=== PATIENT | male | born 1955 | race African-American/Black ===

== ENCOUNTER 2017-12-06 17:47 | Observation (INO) | payer OTHER ==
[2017-12-06] MEDS ORDERED: levETIRAcetam 500 MG/5 ML INJECTION VIAL IVPB ONE (17:56)
--- NOTE | 2017-12-06 18:02 | PDOC ---
History of Present Illness - History of Present Illness Initial Comments: 12/06/17 17:59 Pt is a 62 y/o M with PMH seizure disorder, HTN, HLD, DM who was BIBEMS for witnessed seizure. Pt accompanied by 3 sisters who state that they heard a thump and went upstairs to find him seizing and called the ambulance. Family notes that pt has been uncompliant with medications, although pt is adamant that he takes his medications every day. Pt had his first seizure in Sep 2016 and has had several seizures since then, for which they normally go to [facility]. In ED, pt is still somewhat drowsy and slow to answer questions, but is AAOx3. Pt does not remember what happened. <Christiano Hamlin - Last Filed: 12/06/17 19:11> <Jenny Johns - Last Filed: 12/06/17 20:56> - General Chief Complaint: Seizure Stated Complaint: SEIZURE Time Seen by Provider: 12/06/17 17:58 Past History - Past Medical History Anemia: No Asthma: No Cancer: No Cardiac Disorders: No CVA: No COPD: No CHF: No Dementia: No Diabetes: Yes (NIDDM) GI Disorders: No Disorders: No HTN: Yes Hypercholesterolemia: No Liver Disease: No Seizures: No Thyroid Disease: No - Surgical History Orthopedic Surgery: Yes - Suicide/Smoking/Psychosocial Hx Smoking History: Never smoked Have you smoked in the past 12 months: No Hx Alcohol Use: No Drug/Substance Use Hx: No Substance Use Type: None Hx Substance Use Treatment: No <Christiano Hamlin - Last Filed: 12/06/17 19:11> <Jenny Johns - Last Filed: 12/06/17 20:56> - Past Medical History Allergies/Adverse Reactions: Allergies Allergy/AdvReac Type Severity Reaction Status Date / Time No Known Drug Allergies Allergy Verified 12/06/17 17:53 Home Medications: Ambulatory Orders Amlodipine Besylate [Norvasc -] 10 mg PO DAILY 12/06/17 Atorvastatin Calcium 80 mg PO DAILY 12/06/17 Hydrochlorothiazide 25 mg PO DAILY 12/06/17 Levetiracetam 750 mg PO BID 12/06/17 Metformin HCl 500 mg PO BID 12/06/17 Review of Systems - Review of Systems Able to Perform ROS?: Yes (limited. Post-ictal) Is the patient limited Greenlandic proficient: No Constitutional: Yes: Symptoms Reported. No: Chills, Diaphoresis, Fever HEENTM: Yes: Symptoms Reported. No: Blurred Vision Respiratory: Yes: Symptoms reported. No: Cough Cardiac (ROS): Yes: Symptoms Reported. No: Chest Pain, Chest Tightness ABD/GI: Yes: Symptoms Reported. No: Abdominal Distended, Constipated, Diarrhea , Difficulty Swallowing, Nausea, Poor Appetite, Vomiting : Yes: Symptoms Reported. No: Burning, Dysuria, Discharge, Hematuria, Pain Neurological: Yes: Symptoms reported, Headache (for a few minutes preceding his seizure) <Christiano Hamlin - Last Filed: 12/06/17 19:11> *Physical Exam - Physical Exam General Appearance: Yes: Nourished, Appropriately Dressed, Obese. No: Apparent Distress HEENT: positive: EOMI (pt tracks but slowly and requires prompting. Able to look in all directions without nystagmus), Normal Voice. negative: DORA (fixed pupils s/p cataract), Normal ENT Inspection (pharynx poorly visualized. Tongue without lesion. Moist mucous membranes) Neck: positive: Supple. negative: Tender Respiratory/Chest: positive: Chest Tender, Normal Breath Sounds Cardiovascular: positive: Regular Rhythm, Regular Rate Gastrointestinal/Abdominal: positive: Normal Bowel Sounds, Soft. negative: Tender Neurologic: positive: Fully Oriented. negative: Normal Mood/Affect (Pt still post-ictal and drowsy. Slow to obey commands) <Christiano Hamlin - Last Filed: 12/06/17 19:11> - Vital Signs Last Vital Signs Temp Pulse Resp BP Pulse Ox 97.0 F L 90 20 95/84 97 12/06/17 17:53 12/06/17 18:01 12/06/17 17:53 12/06/17 17:53 12/06/17 18:01 <Jenny Johns - Last Filed: 12/06/17 20:56> ED Treatment Course - LABORATORY CBC & Chemistry Diagram: 12/06/17 18:46 12/06/17 18:46 <Christiano Hamlin - Last Filed: 12/06/17 19:11> - LABORATORY CBC & Chemistry Diagram: 12/06/17 18:46 12/06/17 18:46 - ADDITIONAL ORDERS Additional order review: Laboratory Results 12/06/17 12/06/17 12/06/17 18:46 18:46 18:46 PT with INR 11.70 INR 1.04 Sodium 139 Potassium 3.5 Chloride 104 Carbon Dioxide 23 Anion Gap 12 BUN 16 Creatinine 1.3 D Creat Clearance w eGFR 55.94 Random Glucose 150 H D Calcium 8.6 Total Bilirubin 0.5 D AST 15 D ALT 30 D Alkaline Phosphatase 166 H D Creatine Kinase 195 Creatine Kinase Index 1.0 CK-MB (CK-2) 1.951 Troponin I < 0.02 Total Protein 8.3 H Albumin 3.9 Blood Type O POSITIVE Antibody Screen Negative 12/06/17 18:46 RBC 5.26 MCV 88.7 MCHC 31.8 L RDW 14.0 MPV 10.4 Neutrophils % 87.1 H D Lymphocytes % 8.8 D Monocytes % 3.5 L Eosinophils % 0.2 D Basophils % 0.4 - RADIOLOGY Radiology Studies Ordered: Category Date Time Status HEAD CT WITHOUT CONTRAST [CT] Stat CT Scan 12/06/17 17:54 Ordered CHEST X-RAY PORTABLE* [RAD] Stat Radiology 12/06/17 17:54 Taken - Medications Given in the ED: ED Medications Discontinued Medications Generic Name Dose Route Start Last Admin Trade Name Freq PRN Reason Stop Dose Admin Levetiracetam 1,000 mg/ Sodium 110 mls @ 420 mls/hr 12/06/17 18:15 12/06/17 20:37 Chloride IVPB 12/06/17 18:30 420 mls/hr ONCE ONE Administration <Jenny Johns - Last Filed: 12/06/17 20:56> Medical Decision Making - Medical Decision Making 12/06/17 18:09 Pt is a 62 y/o M with PMH epilepsy who is reportedly noncompliant with medication who was BIBEMS for witnessed seizure. -Head CT -keppra 1gm -cbc -cmp -ua -trop -pt/inr -ekg -cxr Pt sees Dr. Garcia (neurology) 12/06/17 19:11 Pt stable, afebrile, in NAD. Pt signed out to night team. <Christiano Hamlin - Last Filed: 12/06/17 19:11> *DC/Admit/Observation/Transfer <Christiano Hamlin - Last Filed: 12/06/17 19:11> - Discharge Dispostion Admit: Yes <Jenny Johns - Last Filed: 12/06/17 20:56> Diagnosis at time of Disposition: Seizure - Referrals Referrals: Jerilyn Grant MD [Primary Care Provider] - - Patient Instructions - Post Discharge Activity
[2017-12-06] MEDS ORDERED: LEVETIRACETAM IVPB ONE ×2 (18:15)
[2017-12-06] MEDS ORDERED: SODIUM CHLORIDE IVPB ONE ×2 (18:15)
[2017-12-06 18:54] LABS: BASO % 0.4 % (0-2.0); EOS % 0.2 % (0-4.5); HEMATOCRIT 46.7 % (35.4-49); HEMOGLOBIN 14.9 GM/dL (11.7-16.9); LYMPH % 8.8 % (8-40); MCH 28.2 pg (25.7-33.7); MCHC 31.8 g/dl (32.0-35.9); MEAN CELL VOLUME 88.7 fl (80-96); MEAN PLT VOLUME 10.4 fl (7.5-11.1); MONO % 3.5 % (3.8-10.2); NEUT % 87.1 % (42.8-82.8); PLATELET COUNT 203 K/MM3 (134-434); RBC 5.26 M/mm3 (4.00-5.60); WHITE BLOOD COUNT 13.2 K/mm3 (4.0-10.0)
[2017-12-06 19:06] LABS: INR 1.04 (0.82-1.09); PROTHROMBIN TIME (PATIENT) 11.7 SEC (9.98-11.88)
[2017-12-06 19:23] LABS: ALBUMIN 3.9 g/dl (3.4-5.0); ANION GAP 12 (8-16); BILIRUBIN,TOTAL 0.5 mg/dL (0.2-1.0); BLOOD UREA NITROGEN 16 mg/dL (7-18); CALCIUM 8.6 mg/dL (8.5-10.1); CHLORIDE 104 mmol/L (98-107); CO2 23 mmol/L (21-32); CREATININE 1.3 mg/dL (0.7-1.3); GLUCOSE,RANDOM 150 mg/dL (74-106); POTASSIUM 3.5 mmol/L (3.5-5.1); SGOT/AST 15 U/L (15-37); SGPT/ALT 30 U/L (12-78); SODIUM 139 mmol/L (136-145); TOT PROT 8.3 g/dl (6.4-8.2)
[2017-12-06 19:25] LABS: ALK PHOS 166 U/L (45-117)
--- NOTE | 2017-12-06 20:48 | HP ---
CHIEF COMPLAINT:seizure PCP: HISTORY OF PRESENT ILLNESS: Pt is a 62 y/o M with PMH seizure disorder, HTN, HLD, DM who was BIBEMS for witnessed seizure. Pt accompanied by 3 sisters who state that they heard a thump and went upstairs to find him seizing and called the ambulance. Family notes that pt has been uncompliant with medications, although pt is adamant that he takes his medications every day. Pt had his first seizure in Sep 2016 and has had several seizures since then, for which they normally go to [facility]. In ED, pt is still somewhat drowsy and slow to answer questions, but is AAOx3. Pt does not remember what happened. ROS: Denies fever, chills,N/V/D/C. He denies any chest pain SoB, palpitation. abdominal pain or urinary symptoms. ER course was notable for: (1)CT denies by patient (2)CBC : wbc 13.2 (3)CMP : Glu 150 (4) Levetiracetam 750 IV push Recent Travel:denies PAST MEDICAL HISTORY: Seizure, HTN,HLD, DM . PAST SURGICAL HISTORY: Cataract, right broken arm, back surgery Social History: Smoking:denies Alcohol:denies Drugs: denies Family History: Allergies No Known Drug Allergies Allergy (Verified 12/06/17 17:53) HOME MEDICATIONS: Home Medications Medication Instructions Recorded Amlodipine Besylate [Norvasc -] 10 mg PO DAILY 12/06/17 Atorvastatin Calcium 80 mg PO DAILY 12/06/17 Hydrochlorothiazide 25 mg PO DAILY 12/06/17 Levetiracetam 750 mg PO BID 12/06/17 Metformin HCl 500 mg PO BID 12/06/17 REVIEW OF SYSTEMS CONSTITUTIONAL: Absent: fever, chills, diaphoresis, generalized weakness, malaise, loss of appetite, weight change HEENT: Absent: rhinorrhea, nasal congestion, throat pain, throat swelling, difficulty swallowing, mouth swelling, ear pain, eye pain, visual changes CARDIOVASCULAR: Absent: chest pain, syncope, palpitations, irregular heart rate, lightheadedness , peripheral edema RESPIRATORY: Absent: cough, shortness of breath, dyspnea with exertion, orthopnea, wheezing, stridor, hemoptysis GASTROINTESTINAL: Absent: abdominal pain, abdominal distension, nausea, vomiting, diarrhea, constipation, melena, hematochezia GENITOURINARY: Absent: dysuria, frequency, urgency, hesitancy, hematuria, flank pain, genital pain MUSCULOSKELETAL: Absent: myalgia, arthralgia, joint swelling, back pain, neck pain SKIN: Absent: rash, itching, pallor HEMATOLOGIC/IMMUNOLOGIC: Absent: easy bleeding, easy bruising, lymphadenopathy, frequent infections ENDOCRINE: Absent: unexplained weight gain, unexplained weight loss, heat intolerance, cold intolerance NEUROLOGIC: Absent: headache, focal weakness or paresthesias, dizziness, unsteady gait, seizure, mental status changes, bladder or bowel incontinence PSYCHIATRIC: Absent: anxiety, depression, suicidal or homicidal ideation, hallucinations. PHYSICAL EXAMINATION Vital Signs - 24 hr 12/06/17 12/06/17 17:53 18:01 Temperature 97.0 F L Pulse Rate 90 90 Respiratory 20 Rate Blood Pressure 95/84 O2 Sat by Pulse 95 97 Oximetry (%) GENERAL: Awake, alert, and fully oriented, in no acute distress. HEAD: Normal with no signs of trauma. EYES: Pupils equal, round and reactive to light, extraocular movements intact, sclera anicteric, conjunctiva clear. EARS, NOSE, THROAT: Moist mucous membranes. NECK: Normal range of motion, supple without lymphadenopathy, LUNGS: Breath sounds equal, clear to auscultation bilaterally. No wheezes, and no crackles. No accessory muscle use. HEART: Regular rate and rhythm, normal S1 and S2 without murmur, rub or gallop. ABDOMEN: Soft,obese, nontender, not distended, normoactive bowel sounds, no guarding, no rebound, no masses. No hepatomegaly or splenomegaly. LOWER EXTREMITIES: 2+ pulses, warm, well-perfused. No calf tenderness. +2 peripheral edema. NEUROLOGICAL: move all ext, . Normal speech. Normal gait. PSYCHIATRIC: Cooperative. Good eye contact. Appropriate mood and affect. SKIN: Warm, dry, normal turgor, no rashes or lesions noted, normal capillary refill. Laboratory Results - last 24 hr 12/06/17 12/06/17 12/06/17 18:46 18:46 18:46 WBC 13.2 H D RBC 5.26 Hgb 14.9 D Hct 46.7 MCV 88.7 MCH 28.2 MCHC 31.8 L RDW 14.0 Plt Count 203 MPV 10.4 Neutrophils % 87.1 H D Lymphocytes % 8.8 D Monocytes % 3.5 L Eosinophils % 0.2 D Basophils % 0.4 PT with INR 11.70 INR 1.04 Sodium 139 Potassium 3.5 Chloride 104 Carbon Dioxide 23 Anion Gap 12 BUN 16 Creatinine 1.3 D Creat Clearance w eGFR 55.94 Random Glucose 150 H D Calcium 8.6 Total Bilirubin 0.5 D AST 15 D ALT 30 D Alkaline Phosphatase 166 H D Creatine Kinase 195 Creatine Kinase Index 1.0 CK-MB (CK-2) 1.951 Troponin I < 0.02 Total Protein 8.3 H Albumin 3.9 CBC, BMP 12/06/17 18:46 12/06/17 18:46 ASSESSMENT/PLAN: Pt is a 62 y/o M with PMH seizure disorder, HTN, HLD, DM who was BIBEMS for witnessed seizure. was admitted for observation Seizure * Admit to observation * continue home meds * patient non compliant * ED contacted , recommended to obderve over night and DC home in AM in no other seizure activity * Pt on Levetiracetam 750 mg PO BID * Patient refuse head CT scan X4 HTN * continue home meds * Norvasc 10 mg po daily, HCTZ 25mf po daily HLD * continue home meds Storvastatin Ca 80 mg po daily DM * hold metformin * ISS * BGM q4hr * Diabetic diet FEN/Proph * F: On no fluids * E: WNL * N: diabetic diet * DVT: SCDS Both legs , early ambulation, 5000 units hep SQ TID Dispo, * admit to observation * PT is full code Visit type - Emergency Visit Emergency Visit: Yes ED Registration Date: 12/06/17 Care time: The patient presented to the Emergency Department on the above date and was hospitalized for further evaluation of their emergent condition. - New Patient This patient is new to me today: Yes Date on this admission: 12/07/17 - Critical Care Critical Care patient: No
--- NOTE | 2017-12-06 20:51 | PDOC ---
Attending Attestation - Resident Resident Name: Christiano Hamlin - ED Attending Attestation I have performed the following: I have examined & evaluated the patient, The case was reviewed & discussed with the resident, I agree w/resident's findings & plan, Exceptions are as noted - HPI HPI: 12/06/17 20:50 62 yo male had seizure at home that was short lived . He lives with his sisters and they heard him fall and went and found him seizing. PMH CVA,SEIZURE,DM,OBESITY 12/07/17 01:49 - Physicial Exam PE: 12/07/17 01:54 obese 62 yo who initially presented post ictal but then became alert, conversant and ambulatory HEAD no scalp lacerations neck supple lungs cta b.l cvs [id number] abd protuberant,nontender extremities no deformity neuro alert,conversant ,unsteady gait (usually uses a cane) neglect of left side -family states he could not see anythin on his left side ever since his stroke some time ago - Medical Decision Making 12/07/17 02:[address] Garica, pt very noncompliant with antiseizure meds plan will load with tegan pt refused ct scan of head admitted for OBS
[2017-12-06] MEDS ORDERED: PATIENT'S OWN MEDICATION (NON-FORMULARY) (Levetiracetam [Levetiracetam] 750 MG) PO SCH (22:00)
[2017-12-06] MEDS: INSULIN SLIDING SCALE (NOVOLOG) 1 VIAL SQ SCH (22:51)
--- NOTE | 2017-12-06 23:05 | PN ---
Teaching Attending Note Name of Resident: Iain Medina ATTENDING PHYSICIAN STATEMENT I saw and evaluated the patient. Chart, data, imaging reviewed. I reviewed the resident's note and discussed the case with the resident. I agree with the resident's findings and plan as documented. SUBJECTIVE: 62 y/o M with PMH seizure disorder believed to be noncomplaint with meds, HTN, DLP, DM brought in after siblings witness tonic clonic seizure 12/06 a about 4 pm. EMS was summoned. Patient with reportedly normal FS in the field. As per family, pt noncompliant with his antiepiletic meds. Given 1g Keppra IV in ER, pt refused head CT multiple times. He denied any head trauma or illicit drug use. OBJECTIVE: Last Vital Signs Temp Pulse Resp BP Pulse Ox 97.0 F L 90 20 95/84 97 12/06/17 17:53 12/06/17 18:01 12/06/17 17:53 12/06/17 17:53 12/06/17 18:01 general- aaox3, nad, obese heent- neck -supple, no jvd cv - s1+s2+ rrr chest- cta b/l abdomen- obese, nt, bs+, no masses Ext- no pedal edema Abnormal Lab Results 12/06/17 12/06/17 18:46 18:46 WBC 13.2 H D MCHC 31.8 L Neutrophils % 87.1 H D Monocytes % 3.5 L Random Glucose 150 H D Alkaline Phosphatase 166 H D Total Protein 8.3 H EKG -nsr, no st, t changes seen ASSESSMENT AND PLAN: #Tonic clonic seizure- witnesses with no signs of head trauma. Likely 2/2 to medication noncompliance. No hypoglycemia. Electrolytes wnl. Pt refused head CT. S/p 1g Keppra IV in ER. -admit to tele-obs -frequent neuro checks -restart keppra 750mg bid PO -urine toxicology -restart home medications for chronic medical problems #DVT ppx- heparin sc -can d/c in morning if no seizures
[2017-12-07] MEDS ORDERED: HEPARIN NA (PORCINE) 5,000 UNITS/ML 1ML VIAL SQ SCH (06:00)
[2017-12-07] MEDS ORDERED: HEPARIN NA (PORCINE) 5,000 UNITS/ML 1ML VIAL ONE (06:12)
[2017-12-07] MEDS: INSULIN SLIDING SCALE (NOVOLOG) 1 VIAL SQ SCH (06:25)
[2017-12-07 08:11] LABS: HEMOGLOBIN 13.7 GM/dL (11.7-16.9); MCH 27.8 pg (25.7-33.7); MCHC 31.8 g/dl (32.0-35.9); MEAN CELL VOLUME 87.4 fl (80-96); MEAN PLT VOLUME 10.2 fl (7.5-11.1); PLATELET COUNT 196 K/MM3 (134-434); RBC 4.92 M/mm3 (4.00-5.60); RDW 13.6 % (11.9-15.9); WHITE BLOOD COUNT 9.3 K/mm3 (4.0-10.0)
[2017-12-07 08:34] LABS: CHLORIDE 103 mmol/L (98-107); POTASSIUM 3.4 mmol/L (3.5-5.1); SODIUM 141 mmol/L (136-145)
[2017-12-07 08:52] LABS: ALBUMIN 3.6 g/dl (3.4-5.0); ALK PHOS 148 U/L (45-117); ANION GAP 10 (8-16); BILIRUBIN,TOTAL 0.7 mg/dL (0.2-1.0); BLOOD UREA NITROGEN 12 mg/dL (7-18); CALCIUM 8.8 mg/dL (8.5-10.1); CO2 28 mmol/L (21-32); CREATININE 0.9 mg/dL (0.7-1.3); GLUCOSE,RANDOM 91 mg/dL (74-106); SGOT/AST 19 U/L (15-37); SGPT/ALT 26 U/L (12-78); TOT PROT 7.5 g/dl (6.4-8.2)
[2017-12-07] MEDS ORDERED: POTASSIUM CHLORIDE ORAL LIQUID 20 MEQ/15 ML PO ONE (09:08)
--- NOTE | 2017-12-07 09:41 | DS ---
Physical Exam: SUBJECTIVE: Patient seen and examined. asymptomatic now. recalls events of yesterday, states he took his BP medications which he has not done in weeks and felt very lightheaded and developed GEORGE then had a seziure. states he has been seizure free for over a year. claims medication compliance with his antiseizure meds and diabetic meds and only occasionaly takes his BP meds. dnies Cp, SOB, fever, chills, n/V/C/D, recent URI symptoms or ABx use. OBJECTIVE: Vital Signs Period Temp Pulse Resp BP Sys/[place] Pulse Ox Last 24 Hr 97.0 F 86-90 18-20 95-114/59-84 95-99 PHYSICAL EXAM GENERAL: The patient is awake, alert, and fully oriented, in no acute distress. HEAD: Normal with no signs of trauma. EYES: PERRL, extraocular movements intact, sclera anicteric, conjunctiva clear. ENT: Ears normal, nares patent, oropharynx clear without exudates, moist mucous membranes. NECK: Trachea midline, full range of motion, supple. LUNGS: Breath sounds equal, clear to auscultation bilaterally, no wheezes, no crackles, no accessory muscle use. HEART: Regular rate and rhythm, S1, S2 without murmur, rub or gallop. ABDOMEN: Soft, nontender, nondistended, normoactive bowel sounds, no guarding, no rebound, no hepatosplenomegaly, no masses. EXTREMITIES: 2+ pulses, warm, well-perfused, no edema. NEUROLOGICAL: Cranial nerves II through XII grossly intact. Normal speech, gait not observed. PSYCH: Normal mood, normal affect. SKIN: Warm, dry, normal turgor, no rashes or lesions noted. LABS Laboratory Results - last 24 hr 12/06/17 12/06/17 12/06/17 18:46 18:46 18:46 WBC 13.2 H D RBC 5.26 Hgb 14.9 D Hct 46.7 MCV 88.7 MCH 28.2 MCHC 31.8 L RDW 14.0 Plt Count 203 MPV 10.4 Neutrophils % 87.1 H D Lymphocytes % 8.8 D Monocytes % 3.5 L Eosinophils % 0.2 D Basophils % 0.4 PT with INR 11.70 INR 1.04 Sodium 139 Potassium 3.5 Chloride 104 Carbon Dioxide 23 Anion Gap 12 BUN 16 Creatinine 1.3 D Creat Clearance w eGFR 55.94 POC Glucometer Random Glucose 150 H D Calcium 8.6 Total Bilirubin 0.5 D AST 15 D ALT 30 D Alkaline Phosphatase 166 H D Creatine Kinase 195 Creatine Kinase Index 1.0 CK-MB (CK-2) 1.951 Troponin I < 0.02 Total Protein 8.3 H Albumin 3.9 Blood Type Antibody Screen 12/06/17 12/06/17 12/07/17 18:46 22:36 06:19 WBC RBC Hgb Hct MCV MCH MCHC RDW Plt Count MPV Neutrophils % Lymphocytes % Monocytes % Eosinophils % Basophils % PT with INR INR Sodium Potassium Chloride Carbon Dioxide Anion Gap BUN Creatinine Creat Clearance w eGFR POC Glucometer 127.73405 118.72882 Random Glucose Calcium Total Bilirubin AST ALT Alkaline Phosphatase Creatine Kinase Creatine Kinase Index CK-MB (CK-2) Troponin I Total Protein Albumin Blood Type O POSITIVE Antibody Screen Negative 12/07/17 12/07/17 07:30 07:30 WBC 9.3 RBC 4.92 Hgb 13.7 Hct 43.0 MCV 87.4 MCH 27.8 MCHC 31.8 L RDW 13.6 Plt Count 196 MPV 10.2 Neutrophils % Lymphocytes % Monocytes % Eosinophils % Basophils % PT with INR INR Sodium 141 Potassium 3.4 L Chloride 103 Carbon Dioxide 28 D Anion Gap 10 BUN 12 D Creatinine 0.9 D Creat Clearance w eGFR > 60 POC Glucometer Random Glucose 91 D Calcium 8.8 Total Bilirubin 0.7 D AST 19 D ALT 26 Alkaline Phosphatase 148 H Creatine Kinase Creatine Kinase Index CK-MB (CK-2) Troponin I Total Protein 7.5 Albumin 3.6 Blood Type Antibody Screen HOSPITAL COURSE: Date of Admission:12/06/17 Date of Discharge: 12/07/17 Admitting diagnosis: breakthrough seizure, hypokalemia Pre hospital course Pt is a 62 y/o M with PMH seizure disorder, HTN, HLD, DM who was BIBEMS for witnessed seizure. Pt accompanied by 3 sisters who state that they heard a thump and went upstairs to find him seizing and called the ambulance. Family notes that pt has been uncompliant with medications, although pt is adamant that he takes his medications every day. Pt had his first seizure in Sep 2016 and has had several seizures since then, for which they normally go to [facility]. In ED, pt is still somewhat drowsy and slow to answer questions, but is AAOx3. Pt does not remember what happened. Subsequent hospital course Medicine observation. refused Head CT. loaded with Keppra 1g IV and restarted with home medciatosn. ER staff spoke with Dr Garcia who stated if he was seizure free could be d/c in AM. pt had no events. hypokalemia was repleted. instructed to hold BP meds as BP was low in the ER which couldve precipitated seizure. appt made with office for tomorrow 12/08 at 12pm. stressed importance of keeping appointment. Minutes to complete discharge: 40 Discharge Summary Reason For Visit: SEIZURE Current Active Problems Hypokalemia (Acute) Seizure (Acute) Diabetes (Chronic) Condition: Improved - Instructions Diet, Activity, Other Instructions: You were admitted to the hospital because you had a seizure. It is VERY important that you take your seizure medications every day as instructed. Hold your blood pressure medications at this time as your blood pressure is low here. Have it checked tomorrow at your neurology appointment to see if one should be re-started. FOLLOW UP WITH NEUROLOGY TOMORROW. You have an appointment for Friday 12/08 at 12pm. IT IS VERY IMPORTANT YOU KEEP THIS APPOINTMENT FOllow up with your primary care doctor this week. Have your blood pressure evaluated and determine if you need to re-start your medications Return to the Er if you have a repeat seizure. Referrals: Jerilyn Grant MD [Primary Care Provider] - Gregory Garcia MD [Staff Physician] - Disposition: HOME - Home Medications Comprehensive Discharge Medication List: Ambulatory Orders Atorvastatin Calcium 80 mg PO DAILY 12/06/17 Levetiracetam 750 mg PO BID 12/06/17 Metformin HCl 500 mg PO BID 12/06/17 This patient is new to me today: Yes Date on this admission: 12/07/17 Emergency Visit: Yes ED Registration Date: 12/06/17 Care time: The patient presented to the Emergency Department on the above date and was hospitalized for further evaluation of their emergent condition. Critical Care patient: No - Discharge Referral Referred to [facility] Med P.C.: No
[2017-12-07] MEDS ORDERED: amLODIPine BESYLATE 10 MG TABLET (FP) PO SCH (10:00)
[2017-12-07] MEDS ORDERED: HYDROCHLOROTHIAZIDE 25 MG TABLET (FP) PO SCH (10:00)
[2017-12-07] MEDS ORDERED: PATIENT'S OWN MEDICATION (NON-FORMULARY) (Levetiracetam [Levetiracetam] 750 MG) PO SCH (10:00)
[2017-12-07] MEDS ORDERED: LEVETIRACETAM 500 MG, LEVETIRACETAM 250 MG PO SCH (10:00)
--- NOTE | 2017-12-07 10:22 | EKG ---
Test Reason : Blood Pressure : / mmHG Vent. Rate : 064 BPM Atrial Rate : 064 BPM P-R Int : 182 ms QRS Dur : 084 ms QT Int : 422 ms P-R-T Axes : 066 057 044 degrees QTc Int : 435 ms NORMAL SINUS RHYTHM NORMAL ECG WHEN COMPARED WITH ECG OF 06-DEC-2017 18:03, NO SIGNIFICANT CHANGE WAS FOUND Confirmed by JEFF DARNELL MD ([id number]) on 12/07/2017 10:22:35 AM Referred By: Confirmed By:JEFF DARNELL MD
[2017-12-07 10:27] VITALS: BP 130/68; PULSE 60; TEMP 98
--- NOTE | 2017-12-07 10:33 | EKG ---
Test Reason : Blood Pressure : / mmHG Vent. Rate : 088 BPM Atrial Rate : 088 BPM P-R Int : 182 ms QRS Dur : 086 ms QT Int : 344 ms P-R-T Axes : 052 055 008 degrees QTc Int : 416 ms NORMAL SINUS RHYTHM NONSPECIFIC T WAVE ABNORMALITY ABNORMAL ECG WHEN COMPARED WITH ECG OF 31-MAY-2016 10:03, VENT. RATE HAS INCREASED BY 33 BPM NONSPECIFIC T WAVE ABNORMALITY NOW EVIDENT IN INFERIOR LEADS Confirmed by JEFF DARNELL MD ([id number]) on 12/07/2017 10:33:48 AM Referred By: Confirmed By:JEFF DARNELL MD
[2017-12-07 11:09] VITALS: BMI 40.6
[2017-12-07] MEDS ORDERED: ATORVASTATIN CA 80 MG TABLET (FP) PO SCH (22:00)
== END 2017-12-07 12:14 | disposition home or self-care (01) ==
LOC: SUPCPDRO 17:47 → JER 17:47 → JERBED 20:56
PROVIDERS: ADMIT Internal Medicine; ATTEND Internal Medicine
PROC: 3E033GC Introduction of Other Therapeutic Substance into Peripheral Vein, Percutaneous Approach (ICD-10-PCS; principal; 2017-12-06)
PROC: 3E013GC Introduction of Other Therapeutic Substance into Subcutaneous Tissue, Percutaneous Approach (ICD-10-PCS; 2017-12-06)
DX: G40.309 Generalized idiopathic epilepsy and epileptic syndromes, not intractable, without status epilepticus (principal); I10 Essential (primary) hypertension; E78.5 Hyperlipidemia, unspecified; E11.9 Type 2 diabetes mellitus without complications; E87.6 Hypokalemia; E66.9 Obesity, unspecified; Z68.41 Body mass index [BMI] 40.0-44.9, adult; Z91.14 Patient's other noncompliance with medication regimen; Z79.84 Long term (current) use of oral hypoglycemic drugs
CPT/HCPCS: 36415; 71045-TC; 80053; 82550; 82553; 82962; 84484; 85025; 85027; 85610; 86850; 86900; 86901; 93005; 93010; 96372; 96374; 99285-25; G0378; J1644

== ENCOUNTER → 2019-11-12 | Emergency (ER) | payer OTHER ==
[~2019-11-12] MED LIST: HALOPERIDOL LACTATE 5 MG/ML ONE; LORazepam 2 MG/ML SDV VIAL ONE
--- NOTE | 2019-11-13 00:47 | PDOC ---
History of Present Illness - General Chief Complaint: CVA/TIA Stated Complaint: WEAKNESS/R/O STROKE Time Seen by Provider: 11/13/19 00:28 History Source: Patient, EMS, Family Exam Limitations: Other (agitation) - History of Present Illness Initial Comments: 11/13/19 00:44 HPI: 64yo smoker M with PMH HTN, DM, HLD, seizure disorder presenting with left sided weakness since. Last known well 6:30/7:00PM tonight. Patient is not on anticoagulation. Reported to have a seizure witnessed by fire department responders. On [place], reportedly noncompliant. First seizure in Sep 2016, several since then, normally goes to [facility]. Demanding to leave the department over and over, minimally compliant wwith H&P, noncompliant with CT for 45 minutes. Swears that he does not have weakness despite continually dropping things with his left hand. All: NKDA Meds: per cahrt PMH: as above PSH: as above SHx: Current everyday smoker with carton of cigarettes in hand Past History - Past Medical History Allergies/Adverse Reactions: Allergies Allergy/AdvReac Type Severity Reaction Status Date / Time No Known Drug Allergies Allergy Verified 11/12/19 23:58 Home Medications: Ambulatory Orders Atorvastatin Calcium 80 mg PO DAILY 12/06/17 Levetiracetam 750 mg PO BID 12/06/17 metFORMIN HCL [Metformin HCl] 500 mg PO BID 12/06/17 Anemia: No Asthma: No Cancer: No Cardiac Disorders: No CVA: No COPD: No CHF: No Dementia: No Diabetes: Yes (NIDDM) GI Disorders: No Disorders: No HTN: Yes Hypercholesterolemia: No Liver Disease: No Seizures: No Thyroid Disease: No - Surgical History Orthopedic Surgery: Yes - Psycho Social/Smoking Cessation Hx Smoking History: Never smoked Have you smoked in the past 12 months: No Hx Alcohol Use: No Drug/Substance Use Hx: No Substance Use Type: None Hx Substance Use Treatment: No Neuro Specific PMHX - Complaint Specific PMHX Glaucoma: No Herniated Disk: No Laminectomy: No Migraine: No Multiple Sclerosis: No Neuropathy: No Review of Systems - Review of Systems Able to Perform ROS?: No (Patient noncooperative) Is the patient limited Bur[place]ian proficient: Yes *Physical Exam - Physical Exam 11/13/19 01:24 AFVSS Obese man, combative, not cooperative L side lópez-neglect, weakness Unable to tie shoes Able to ambulate appropriately to the restroom Normal speech Ataxia with fine motor movements - tying shoes, drops things from left hand repeatedly Sensation intact throughout B/L upper and lower extremities RRR, nl s1s2, no murmurs appreciated CTABL, normal WOB, no wheezes / rales / rhonchi Obese abdomen, no scars evident, non-tender 2+ radial and PT pulses NIH Stroke Scale - Last Known Well Date/Time & Onset Date Last Known Well: 11/12/19 Time Last Known Well: 18:30 - Initial Evaluation Level of consciousness: Alert Ask patient the month and their age: Answers both correctly Ask patient to open & close eyes; make fist and let go: Obeys both correctly Best gaze (horizontal eye movement): Normal Visual field testing: No visual field loss Facial paresis (Show teeth/raise eyebrows/close eyes tight): Normal symmetrical movement Motor Function: Left Arm: Drift Motor Function: Right Arm: Normal (extends arm 90 (or 45) degrees for 10 seconds without drift Motor Function: Left Leg: Drift Motor Function: Right Leg: Normal (extends leg 30 degrees for 5 seconds without drift) Limb Ataxia: Present in one limb (left hand, unable to tie shoes) Sensory(Use pinprick test arms,legs,trunk,face/side to side): Normal Best language (Describe picture, name items, read sentences): No Aphasia Dysarthria (read several words): Mild to moderate slurring of words Extinction and Inattention: Inattention or extinction bilaterally to one of the sensory modalities - Total Score NIH Stroke Scale Score: 5 Critical Care Time/MDM Note - Medical Decision Making Note: 11/13/19 01:28 64yo M with multiple medical comorbidities, alert and oriented x3 with capacity , BIBEMS s/p suspected stroke, 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 CT with prior stoke, no acute bleed. Patient demands to leave, fighting with family and staff, understands risks and benefits, agrees to see his neurologist but is insistent that he leave the hospital. CT report provided , patient has already removed leads and dressed himself. Clinically improving as he leaves the department. Dispo: AMA Discharge - Discharge Information Problems reviewed: Yes Clinical Impression/Diagnosis: Cerebrovascular accident (CVA) Qualifiers: CVA mechanism: unspecified Qualified Code(s): I63.9 - Cerebral infarction, unspecified Condition: Stable Disposition: AGAINST MEDICAL ADVICE - Admission No - Follow up/Referral - Patient Discharge Instructions Patient Printed Discharge Instructions: DI for Stroke-Ischemic Additional Instructions: Please follow up with your neurologist as discussed. Return to the hospital at any time. - Post Discharge Activity
[2019-11-13 01:08] VITALS: BP 152/78; PULSE 84; TEMP 97.6; BMI 43.4
--- NOTE | 2019-11-13 01:16 | PDOC ---
Attending Attestation - Resident Resident Name: Armando Anthony - ED Attending Attestation I have performed the following: I have examined & evaluated the patient, The case was reviewed & discussed with the resident, I agree w/resident's findings & plan - HPI HPI: 11/13/19 01:11 Pt comes with left sided weakness of grasp; family states that he was dropping his cane. Pt is a smoker, he is obese, and he has a hx of old CVA. He doesn't want to be hereand he is fighting with his family and staff because he wants to go home. Pt is A+Ox3 and he understands the risks of CVA getting worse. Pt is in fact currently getting better. After much convoncing and calling security and his family in to the CT scanner room, pt finally agrees to get a head CT. Ct scan is as follows: Patient Name: ALISTAIR CASAS THIS IS A PRELIMINARY REPORT FROM [facility] DATE OF SERVICE: 2019-11-13 00:05:27 IMAGES: [id number] EXAM: HEAD CT (STROKE) HISTORY: Weakness COMPARISON: None. FINDINGS: The ventricular system is midline and nondilated. The sulcal pattern is normal for the patient's age. Old right MANAGER REQUIREMENTS distribution infarct is noted. Mild small vessel ischemic changes are noted. There is no bleed, mass, extra-axial fluid collection or mass effect. No skull fracture or skull lesion is identified. There is a large left maxillary sinus retention cyst or polyp. The other visualized paranasal sinuses and mastoid air cells are clear. IMPRESSION: No evidence of acute pathology - Physicial Exam PE: 11/13/19 01:15 Pt is awake and alert. Moving all extremities. Left hand nutrition director minimally weaker than the right. HEENT: normal Heart and lungs normal Abd soft NT ND; pt is obese No flank pain Pt has no rashes on trunk Ext: no tenderness - Medical Decision Making 11/14/19 03:48 Pt signed out AMA; refusing to stay, despite family requesting that he does. Pt went home with family and friends. He understands that he is welcome to return at any time.
--- NOTE | 2019-11-13 18:32 | EKG ---
Test Reason : Blood Pressure : / mmHG Vent. Rate : 083 BPM Atrial Rate : 083 BPM P-R Int : 184 ms QRS Dur : 086 ms QT Int : 390 ms P-R-T Axes : 071 067 045 degrees QTc Int : 458 ms SINUS RHYTHM WITH OCCASIONAL PREMATURE VENTRICULAR COMPLEXES NONSPECIFIC T WAVE ABNORMALITY ABNORMAL ECG WHEN COMPARED WITH ECG OF 07-DEC-2017 09:50, PREMATURE VENTRICULAR COMPLEXES ARE NOW PRESENT Confirmed by SCHUYLER FLETCHER MD ([id number]) on 11/13/2019 6:31:58 PM Referred By: Confirmed By:SCHUYLER FLETCHER MD
== END | disposition left against medical advice (07) ==
LOC: JER 23:52
DX: I63.9 Cerebral infarction, unspecified (principal); R29.705 NIHSS score 5; I10 Essential (primary) hypertension; E78.5 Hyperlipidemia, unspecified; E11.9 Type 2 diabetes mellitus without complications; E66.9 Obesity, unspecified; Z68.41 Body mass index [BMI] 40.0-44.9, adult; F17.210 Nicotine dependence, cigarettes, uncomplicated; Z79.84 Long term (current) use of oral hypoglycemic drugs
CPT/HCPCS: 70450-TC; 93005; 93010; 99283-25